=== PATIENT | female | born 1950 | race Hispanic/Latino ===

== ENCOUNTER 2017-08-24 08:07 | Outpatient (CLI) | payer BC | END 2017-08-24 08:08 | disposition home or self-care (01) | LOC: BICMAMMO 08:07 | DX: Z12.31 Encounter for screening mammogram for malignant neoplasm of breast (principal); M54.5 Low back pain; M47.897 Other spondylosis, lumbosacral region | CPT/HCPCS: 72100; 77063; 77067 ==

== ENCOUNTER 2020-09-25 09:29 | Emergency (ER) | payer BC, MEDICARE | END 2020-09-25 11:29 | disposition home or self-care (01) | LOC: ERS 09:29 | DX: H93.11 Tinnitus, right ear (principal); H60.91 Unspecified otitis externa, right ear; I10 Essential (primary) hypertension; E11.9 Type 2 diabetes mellitus without complications; Z79.84 Long term (current) use of oral hypoglycemic drugs; Z79.899 Other long term (current) drug therapy | CPT/HCPCS: 99282 ==

== ENCOUNTER 2020-09-30 09:40 | Emergency (ER) | payer MEDICARE | END 2020-09-30 10:42 | disposition home or self-care (01) | LOC: ERS 09:40 | DX: H93.11 Tinnitus, right ear (principal); E11.9 Type 2 diabetes mellitus without complications; I10 Essential (primary) hypertension; Z87.442 Personal history of urinary calculi; Z79.899 Other long term (current) drug therapy; Z79.84 Long term (current) use of oral hypoglycemic drugs | CPT/HCPCS: 99281 ==

== ENCOUNTER 2021-03-11 08:09 | Outpatient (CLI) | payer MEDICARE ==
[2021-03-11] MEDS ORDERED: Iopamidol-370 76% 500 ML 1 ML ONE (10:29)
== END 2021-03-11 08:10 | disposition home or self-care (01) ==
LOC: BICCT 08:09
PROVIDERS: ATTEND Family Medicine
DX: G43.909 Migraine, unspecified, not intractable, without status migrainosus (principal); H93.11 Tinnitus, right ear; G44.52 New daily persistent headache (NDPH); I67.82 Cerebral ischemia
CPT/HCPCS: 70470

== ENCOUNTER 2021-12-28 16:17 | Emergency (ER) | payer MEDICARE, OTHER ==
[2021-12-28] MEDS ORDERED: Prochlorperazine Maleate 5 MG TAB ONE (19:41)
[2021-12-28] MEDS ORDERED: Acetaminophen 500 MG TAB ONE (19:41)
[2021-12-28] MEDS ORDERED: diphenhydrAMINE 25 MG CAP ONE (19:46)
== END 2021-12-28 20:22 | disposition home or self-care (01) ==
LOC: ERS 16:17
DX: R51.9 Headache, unspecified (principal); E11.9 Type 2 diabetes mellitus without complications; I10 Essential (primary) hypertension; Z79.899 Other long term (current) drug therapy
CPT/HCPCS: 99283; Q0164

== ENCOUNTER 2022-12-04 09:15 | Outpatient (CLI) | payer OTHER | END 2022-12-04 09:16 | disposition home or self-care (01) | LOC: BICMAMMO 09:15 | PROVIDERS: ATTEND Physician Assistant | DX: Z12.31 Encounter for screening mammogram for malignant neoplasm of breast (principal); Z13.820 Encounter for screening for osteoporosis; M85.851 Other specified disorders of bone density and structure, right thigh; Z78.0 Asymptomatic menopausal state | CPT/HCPCS: 77063; 77067; 77080 ==

== ENCOUNTER 2023-05-22 10:07 | Outpatient (CLI) | payer OTHER | END 2023-05-22 10:08 | disposition home or self-care (01) | LOC: MRI 10:07 | PROVIDERS: ATTEND Physician Assistant | DX: R51.9 Headache, unspecified (principal); I67.89 Other cerebrovascular disease | CPT/HCPCS: 70551 ==

== ENCOUNTER 2025-04-13 09:27 | Outpatient (CLI) | payer OTHER | END 2025-04-13 09:28 | disposition home or self-care (01) | LOC: BICRAD 09:27 | PROVIDERS: ATTEND Family Medicine | DX: S93.402A Sprain of unspecified ligament of left ankle, initial encounter (principal) | CPT/HCPCS: 36415; 80053; 80061; 81001; 82043; 83036; 85025 ==